=== PATIENT | female | born 1995 | race Two or more races ===

== ENCOUNTER → 2017-09-04 | Outpatient (CLI) | payer MEDICAID ==
[2017-09-04 18:41] LABS: CHLAM PCR NOT DETECTED (NOT DETECT)
== END ==
LOC: LAB 16:47
PROVIDERS: ATTEND Nurse Practitioner Acute Care
DX: R30.0 Dysuria (principal)
CPT/HCPCS: 87086; 87088; 87186; 87491; 87591

== ENCOUNTER → 2018-09-04 | Outpatient (CLI) | payer MEDICAID ==
[2018-09-04 14:51] LABS: BACTERIA (WET MOUNT) 3+ BACTERIA SEEN; EPITHELIALS (WET MOUNT) 4+ EPITHELIALS SEEN; T.VAGINALIS (WET MOUNT) NO TRICHOMONAS SEEN; WBCS (WET MOUNT) 1+ WBCS SEEN; YEAST (WET MOUNT) NO YEAST SEEN
[2018-09-04 16:24] LABS: CHLAM PCR NOT DETECTED (NOT DETECT); GON PCR NOT DETECTED (NOT DETECT)
== END ==
LOC: LAB 14:28
PROVIDERS: ATTEND Nurse Practitioner Family
DX: N76.0 Acute vaginitis (principal); R30.0 Dysuria
CPT/HCPCS: 87086; 87088; 87186; 87210; 87491; 87591